=== PATIENT | female | born 1940 | race Caucasian/White ===

== ENCOUNTER 2019-12-01 10:20 | Emergency (ER) | payer OTHER, MEDICARE ==
[2019-12-01 10:32] VITALS: BP 135/87; PULSE 95; BMI 26.2
--- NOTE | 2019-12-01 11:31 | PDOC ---
History of Present Illness - General Chief Complaint: Lightheaded Stated Complaint: DIZZINESS /NOUSEA Time Seen by Provider: 12/01/19 11:31 - History of Present Illness Initial Comments: 79 year old female with PMH of hypothyroidism presenting with one week of "feeling as if I'm drunk" and nausea with instability of gait for the past day. States that she has had two episodes of vomit NBNB. Denies any visual symptoms or actual falls. She states that she has never felt this before and has noticed a "popping" sensation but no ear pain, ear fullness, sinus pathology, headache, weakness, numbness/ tingling, or recent illness otherwise. 12/01/19 12:12 Past History - Past Medical History Allergies/Adverse Reactions: Allergies Allergy/AdvReac Type Severity Reaction Status Date / Time No Known Allergies Allergy Verified 12/01/19 10:26 Home Medications: Ambulatory Orders Ibandronate Sodium [Boniva] 150 mg PO ASDIR 12/01/19 Levothyroxine Sodium [Levoxyl] 75 mcg PO DAILY 12/01/19 Meclizine HCl [Antivert -] 25 mg PO DAILY #30 tablet 12/01/19 COPD: No Thyroid Disease: Yes - Psycho Social/Smoking Cessation Hx Smoking History: Unknown if ever smoked Hx Alcohol Use: No Drug/Substance Use Hx: No Review of Systems - Review of Systems Constitutional: No: Chills, Diaphoresis, Fever HEENTM: No: Eye Pain, Blurred Vision, Tearing, Recent change in vision, Double Vision Respiratory: No: Cough, Orthopnea, Shortness of Breath Cardiac (ROS): No: Chest Pain, Edema, Irregular Heart Rate ABD/GI: Yes: Nausea. No: Diarrhea, Vomiting : No: Burning, Dysuria, Discharge Musculoskeletal: No: Back Pain, Joint Pain, Muscle Pain, Muscle Weakness Integumentary: No: Bruising, Erythema, Flushing, Lesions Neurological: Yes: Ataxia. No: Headache, Numbness, Paresthesia Psychiatric: No: Anxiety, Depression, Frequent Crying Hematologic/Lymphatic: No: Anemia, Blood Clots *Physical Exam - Vital Signs Last Vital Signs Temp Pulse Resp BP Pulse Ox 95 H 22 H 135/87 99 12/01/19 10:30 12/01/19 10:30 12/01/19 10:30 12/01/19 10:30 - Physical Exam General Appearance: Yes: Nourished, Appropriately Dressed. No: Apparent Distress HEENT: positive: EOMI, GALEN, Normal ENT Inspection, Normal Voice, Pharynx Normal. negative: TMs Normal Neck: positive: Trachea midline, Normal Thyroid, Supple. negative: Tender, Rigid Respiratory/Chest: positive: Lungs Clear, Normal Breath Sounds. negative: Chest Tender, Respiratory Distress, Accessory Muscle Use Cardiovascular: positive: Regular Rhythm, Regular Rate Gastrointestinal/Abdominal: positive: Normal Bowel Sounds, Flat, Soft. negative: Tender Musculoskeletal: positive: Normal Inspection. negative: Decreased Range of Motion, Vertebral Tenderness Extremity: positive: Normal Capillary Refill, Normal Inspection, Normal Range of Motion. negative: Tender Neurologic: positive: Fully Oriented, Alert, Normal Mood/Affect, Normal Response, Motor Strength 5/5, Other (Slightly hesitant gait. [place] n egative) ED Treatment Course - LABORATORY CBC & Chemistry Diagram: 12/01/19 12:15 12/01/19 12:15 Medical Decision Making - Medical Decision Making 79 year odl female with PMH of hypothyroidism presenting with "feeling as if I am drunk" with evolving symptoms including nausea, vomiting, and ataxia. spoke to Dr. Cazares and he agrees that this is suspicious for posterior stroke. Will perform labs, adminsiter meclixine 50 PO, and obtain brain MRI w/o for posterior stroke. Will revaluate for safe ambulation if MRI negative. 12/01/19 12:33 MRI negative, symptoms resolved. Will DC with neuro follow up. 12/01/19 15:18 Discharge - Discharge Information Problems reviewed: Yes Clinical Impression/Diagnosis: Vertigo Condition: Improved Disposition: HOME - Admission No - Additional Discharge Information Prescriptions: Meclizine HCl [Antivert -] 25 mg PO DAILY #30 tablet - Follow up/Referral Referrals: Papi Cazares MD [Staff Physician] - - Patient Discharge Instructions Patient Printed Discharge Instructions: DI for Vertigo - Post Discharge Activity
[2019-12-01] MEDS ORDERED: MECLIZINE HCL 25 MG TABLET (FP) PO ONE (12:05)
[2019-12-01] MEDS ORDERED: SODIUM CHLORIDE 0.9% 500 ML INFUS.BAG IV ONE (12:05)
[2019-12-01] MEDS ORDERED: MECLIZINE HCL 25 MG TABLET (FP) ONE (12:22)
--- NOTE | 2019-12-01 12:39 | EKG ---
Test Reason : Blood Pressure : / mmHG Vent. Rate : 079 BPM Atrial Rate : 079 BPM P-R Int : 180 ms QRS Dur : 094 ms QT Int : 420 ms P-R-T Axes : 062 -55 051 degrees QTc Int : 481 ms NORMAL SINUS RHYTHM POSSIBLE LEFT ATRIAL ENLARGEMENT LEFT ANTERIOR FASCICULAR BLOCK LEFT VENTRICULAR HYPERTROPHY POSSIBLE LATERAL INFARCT (CITED ON OR BEFORE 18-JAN-2011) ABNORMAL ECG WHEN COMPARED WITH ECG OF 18-JAN-2011 14:46, QUESTIONABLE CHANGE IN INITIAL FORCES OF LATERAL LEADS Confirmed by MD Wellington, Junior ([id number]) on 12/01/2019 12:38:52 PM Referred By: Confirmed By:Junior Paris MD
[2019-12-01 12:43] LABS: BASO % 0.4 % (0-2.0); HEMATOCRIT 41.1 % (32.4-45.2); HEMOGLOBIN 13.3 GM/dL (10.7-15.3); LYMPH % 4.8 % (8-40); MCH 24.4 pg (25.7-33.7); MCHC 32.4 g/dl (32.0-36.0); MEAN CELL VOLUME 75.3 fl (80-96); MEAN PLT VOLUME 7.7 fl (7.5-11.1); NEUT % 88.8 % (42.8-82.8); PLATELET COUNT 338 K/MM3 (134-434); RBC 5.46 M/mm3 (3.60-5.2); RDW 17.4 % (11.6-15.6)
[2019-12-01 13:28] LABS: ALBUMIN 3.7 g/dl (3.4-5.0); BILIRUBIN,TOTAL 0.5 mg/dL (0.2-1); BLOOD UREA NITROGEN 21.6 mg/dL (7-18); CALCIUM 9.4 mg/dL (8.5-10.1); CREATININE 0.9 mg/dL (0.55-1.3); POTASSIUM 4.5 mmol/L (3.5-5.1)
--- NOTE | 2019-12-01 15:13 | PDOC ---
Documentation entered by Senait Cornejo SCRIBE, acting as scribe for Mayela Burroughs MD. Mayela Burroughs MD: This documentation has been prepared by the Nnamdi ramsey Nirvannie, SCRIBE, under my direction and personally reviewed by me in its entirety. I confirm that the documentation accurately reflects all work, treatment, procedures, and medical decision making performed by me. Attending Attestation - Resident Resident Name: Franchesca Hidalgojeremiahjose armando - ED Attending Attestation I have performed the following: I have examined & evaluated the patient, The case was reviewed & discussed with the resident, I agree w/resident's findings & plan, Exceptions are as noted - HPI HPI: 12/01/19 12:38 79 yo F h/ hypothyroid , who presents to the emergency department with 1 week of dizziness/ vertigo like sensation with new onset 1 day of gait ataxia. Patient notes an associated 2 episodes of NBNB emesis and a popping sensation in his ear. She denies similar episodes in the past. She denies any ear pain, headache, focal changes in strength/sensation, chest pain, shortness of breath, or lightheadedness. states she has been having unsteady vertigo like sxs off and on for one week. and worse last night. did have associated nause,a vomiting x 2. now feels better. no focal weakness. no change to speech. Allergies: NKDA 12/01/19 15:10 - Physicial Exam PE: 12/01/19 15:11 awake alert lungs clear bilat heart rrr no mrg abd soft nt nd ext wwp. nuero finger to nose normal. heel to leary normal. gait normal. neg romberg. EOMI, 5/5 all four ext. speech clear. skin nose with scar from MOS procedure. otherwise cdi, no rash. - Medical Decision Making 12/01/19 15:12 79 yo F here with vertigo like sxs. plan ct head. pt with sxs given MRI r/o cva. MRI normal. given meclizine. feels improved. dc home. d/w malkani pt bambi fu outpt. Heart Score/ECG Review #1 General ECG Interpretation: Sinus Rhythm, Normal Rate (79 bpm), Normal Intervals, No acute ischemic changes Compared to previous ECG there are: Other (left axis)
== END 2019-12-01 16:03 | disposition home or self-care (01) ==
LOC: JER 10:20
PROC: 3E0337Z Introduction of Electrolytic and Water Balance Substance into Peripheral Vein, Percutaneous Approach (ICD-10-PCS; principal; 2019-12-01)
DX: R42 Dizziness and giddiness (principal); E03.9 Hypothyroidism, unspecified
CPT/HCPCS: 36415; 70551-TC; 80053; 82962; 84439; 84443; 85025; 93005; 93010; 99285-25